=== PATIENT | male | born 1945 | race Caucasian/White ===

== ENCOUNTER 2017-08-18 12:10 | Day surgery (SDC) | payer OTHER ==
[~2017-08-18] VITALS: Ht 172.7 cm; Wt 78.0 kg
[~2017-08-18 12:10] MED LIST: ASPIRIN81 M2 PO; ATORVASTATIN CA40 MG PO; ESCITALOPRAM OX10 MG PO; FLOMAX0.4 MG PO; GLIPIZIDE10 MG PO; HYZAAR 100-21 TABLET PO; LEVETIRACETAM750 MG PO
[2017-08-18 12:58] LABS: POINT-OF-CARE METER ID UU13113696
== END 2017-08-18 15:10 | disposition home or self-care (01) ==
LOC: CATH 12:10
PROVIDERS: Internal Medicine Cardiovascular Disease
PROC: 0JH602Z Insertion of Monitoring Device into Chest Subcutaneous Tissue and Fascia, Open Approach (ICD-10-PCS; principal; 2017-08-18)
DX: I44.2 Atrioventricular block, complete (principal); I25.10 Atherosclerotic heart disease of native coronary artery without angina pectoris; I10 Essential (primary) hypertension; E11.9 Type 2 diabetes mellitus without complications; I25.2 Old myocardial infarction; E78.5 Hyperlipidemia, unspecified; Z79.82 Long term (current) use of aspirin; Z87.891 Personal history of nicotine dependence
CPT/HCPCS: 82948; C1764; C1894; J0690; J1200; J2250; J3010